=== PATIENT | female | born 1950 | race Caucasian/White ===

== ENCOUNTER → 2024-09-07 13:28 | Outpatient (BNVA) | payer MEDICARE, OTHER, SELFPAY | PROVIDERS: PCP Internal Medicine; Visit Provider Podiatrist Foot & Ankle Surgery | DX: G62.9 Polyneuropathy, unspecified; E11.42 Type 2 diabetes mellitus with diabetic polyneuropathy; M21.611 Bunion of right foot; M21.612 Bunion of left foot; Z79.4 Long term (current) use of insulin | CPT/HCPCS: 99203 ==

== ENCOUNTER → 2024-12-07 12:50 | Outpatient (BNVA) | payer MEDICARE, OTHER, SELFPAY | PROVIDERS: PCP Internal Medicine; Visit Provider Podiatrist Foot & Ankle Surgery | DX: G62.9 Polyneuropathy, unspecified (principal); M21.611 Bunion of right foot; M21.612 Bunion of left foot | CPT/HCPCS: 99213 ==

== ENCOUNTER 2025-01-10 11:16 | Outpatient (CLI) | payer MEDICARE, OTHER, SELFPAY | END 2025-01-10 11:17 | disposition home or self-care (01) | LOC: SPT 11:17 | PROVIDERS: PCP Internal Medicine; Visit Provider Podiatrist Foot & Ankle Surgery | DX: Z46.89 Encounter for fitting and adjustment of other specified devices (principal); G62.9 Polyneuropathy, unspecified; E11.9 Type 2 diabetes mellitus without complications; M21.619 Bunion of unspecified foot | CPT/HCPCS: 97760; L3030 ==